=== PATIENT | female | born 1995 | race American Indian/Alaskan Native ===

== ENCOUNTER 2020-01-17 22:15 | Emergency (ER) | payer OTHER ==
[2020-01-17 22:33] VITALS: BP 127/69
[2020-01-18] MEDS ORDERED: DIPHtheria,PERTUSSIS(ACELL),TETANUS VACCINE/PF 0.5 ML VIAL IM ONE (00:48)
[2020-01-18] MEDS ORDERED: AMOXICILLIN/K CLAV 875/125MG TAB PO ONE (00:48)
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
[2020-01-18] MEDS ORDERED: SULFAMETHOXAZOLE/TRIMETHOPRIM 800/160MG DS TAB PO ONE (01:17)
== END 2020-01-18 01:37 | disposition home or self-care (01) ==
LOC: ED 22:15
DX: S61.259A Open bite of unspecified finger without damage to nail, initial encounter (principal); Z87.891 Personal history of nicotine dependence; Z98.890 Other specified postprocedural states; W50.3XXA Accidental bite by another person, initial encounter; Y93.89 Activity, other specified; Y92.89 Other specified places as the place of occurrence of the external cause; Y99.8 Other external cause status
CPT/HCPCS: 90471; 90715; 99282